=== PATIENT | male | born 1970 | race Caucasian/White ===

== ENCOUNTER 2020-07-01 05:25 | Day surgery (SDC) | payer OTHER ==
[~2020-07-01] VITALS: Ht 182.9 cm; Wt 84.9 kg
[2020-07-01] MEDS ORDERED: CHLORHEXIDINE 15 ML UDC ONE (05:53)
[2020-07-01] MEDS ORDERED: LIDOCAINE/PF 1%, 30ML ONE (06:04)
[2020-07-01] MEDS ORDERED: EPINEPHRINE 1 MG/ML, 1ML ONE (06:04)
[2020-07-01] MEDS ORDERED: CITA40TA5 PO (06:09)
[2020-07-01 06:10] VITALS: BP 156/89
[2020-07-01] MEDS ORDERED: LACTATED RINGERS 1,000 ML IV SCH (06:30)
[2020-07-01] MEDS ORDERED: CHLORHEXIDINE 15 ML UDC MM ONE (06:30)
[2020-07-01] MEDS ORDERED: SUCCINYLCHOLINE 20 MG/ML, 10ML ONE (06:31)
[2020-07-01] MEDS ORDERED: ROPIvacaine/PF 0.5%, 30 ML ONE (06:31)
[2020-07-01] MEDS ORDERED: LIDOCAINE-MPF 2% ,5ML ONE (06:31)
[2020-07-01] MEDS ORDERED: PROPOFOL 10 MG/ML, 20ML ONE (06:31)
[2020-07-01] MEDS ORDERED: FENTANYL PF 100 MCG/2ML ONE (06:32)
[2020-07-01] MEDS ORDERED: MIDAZOLAM 1 MG/ML, 2ML ONE (06:58)
[2020-07-01] MEDS ORDERED: CLINDAMYCIN 150 MG/ML, 6ML ONE (07:20)
[2020-07-01] MEDS ORDERED: CEFAZOLIN 1,000 MG ONE ×2 (07:20)
[2020-07-01] MEDS ORDERED: OXYcodone 5 MG/5 ML ORAL.SOL UDC PO PRN (07:30)
[2020-07-01] MEDS ORDERED: ONDANSETRON 2MG/ML, 2ML IVPush PRN (07:30)
[2020-07-01] MEDS ORDERED: PROMETHAZINE 25 MG/ML, 1ML IVPush PRN (07:30)
[2020-07-01] MEDS ORDERED: FENTANYL PF 100 MCG/2ML IV PRN (07:30)
[2020-07-01] MEDS ORDERED: DEXAMETHASONE 4 MG/ML, 1ML ONE ×3 (07:46)
[2020-07-01] MEDS ORDERED: ONDANSETRON 2MG/ML, 2ML ONE (08:26)
== END 2020-07-01 10:25 | disposition home or self-care (01) ==
LOC: OUT 05:25
PROVIDERS: ATTEND Orthopaedic Surgery
DX: S46.012A Strain of muscle(s) and tendon(s) of the rotator cuff of left shoulder, initial encounter (principal); Z20.828 Contact with and (suspected) exposure to other viral communicable diseases; S43.432A Superior glenoid labrum lesion of left shoulder, initial encounter; G89.18 Other acute postprocedural pain; M75.42 Impingement syndrome of left shoulder; M65.812 Other synovitis and tenosynovitis, left shoulder; Z79.899 Other long term (current) drug therapy; Z88.2 Allergy status to sulfonamides; X58.XXXA Exposure to other specified factors, initial encounter; Y93.89 Activity, other specified; Y92.89 Other specified places as the place of occurrence of the external cause; Y99.8 Other external cause status
CPT/HCPCS: 23430; 29823; 29826; 29827; 64415; 87635; C1713; J0171; J0330; J0690; J1100; J2250; J2405; J2704; J2795; J3010; J7120